=== PATIENT | female | born 2000 | race African-American/Black ===

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

== ENCOUNTER 2024-06-27 14:48 | Emergency (ER) | payer OTHER ==
[2024-06-27 15:03] VITALS: BP 116/68; PULSE 54; RESP 18; TEMP 97; BMI 25.7
[2024-06-27 15:49] LABS: BASO % 0.7 % (0-2.0); HEMATOCRIT 38.7 % (32.4-45.2); HEMOGLOBIN 12.6 GM/dL (10.7-15.3); LYMPH % 31.4 % (8-40); MCH 29.1 pg (25.7-33.7); MCHC 32.7 g/dl (32.0-36.0); MEAN CELL VOLUME 89.1 fl (80-96); MONO % 5.5 % (3.8-10.2); NEUT % 61.4 % (42.8-82.8); PLATELET COUNT 341 10^3/uL (134-434); RBC 4.34 M/mm3 (3.60-5.2); RDW 12.8 % (11.6-15.6); WHITE BLOOD COUNT 7.2 K/mm3 (4.0-10.0)
[2024-06-27 16:09] LABS: INR 1.11 (0.83-1.09); PROTHROMBIN TIME (PATIENT) 12.5 SEC (9.7-13.0)
[2024-06-27 16:11] LABS: ACTIVATED PTT 34.4 SECONDS (25.2-36.5)
[2024-06-27 16:24] LABS: POTASSIUM 4.4 mmol/L (3.5-5.1)
[2024-06-27 16:25] LABS: CALCIUM 9.3 mg/dL (8.5-10.1)
[2024-06-27 16:26] LABS: BLOOD UREA NITROGEN 15.7 mg/dL (7-18)
[2024-06-27 16:29] LABS: CREATININE 0.9 mg/dL (0.55-1.3)
[2024-06-27 17:24] LABS: EPI CELLS 24 /uL (0-25.1); HYALINE CASTS 0 /uL (0-3.1); URINE APPEARANCE CLEAR; URINE BACTERIA 294 /uL (0-1359); URINE BILIRUBIN NEGATIVE (NEGATIVE); URINE COLOR YELLOW; URINE GLUCOSE (UA) NEGATIVE (NEGATIVE); URINE KETONE NEGATIVE (NEGATIVE); URINE LEUK ESTERASE NEGATIVE (NEGATIVE); URINE NITRITE NEGATIVE (NEGATIVE); URINE PROTEIN NEGATIVE (NEGATIVE); URINE RBC 138 /uL (0-23.9); URINE WBC 13 /uL (0-25.8)
== END 2024-06-27 19:10 | disposition home or self-care (01) ==
LOC: JER 14:48
DX: O26.851 Spotting complicating pregnancy, first trimester (principal); Z3A.01 Less than 8 weeks gestation of pregnancy
CPT/HCPCS: 36415; 76817-TC; 80048; 81003; 84702; 85025; 85610; 85730; 86850; 86900; 86901; 99284-25

== ENCOUNTER 2024-07-01 16:08 | Emergency (ER) | payer OTHER ==
[2024-07-01 16:15] VITALS: BP 129/79; PULSE 66; RESP 18; TEMP 97.5; BMI 23.3
[2024-07-01 17:23] LABS: HCG,QUALITATIVE URINE Positive
[2024-07-01 17:26] LABS: EPI CELLS 8 /uL (0-25.1); HYALINE CASTS 1 /uL (0-3.1); PH,URINE 6.5 (5.0-8.0); URINE APPEARANCE CLEAR; URINE BACTERIA 113 /uL (0-1359); URINE BILIRUBIN NEGATIVE (NEGATIVE); URINE COLOR YELLOW; URINE GLUCOSE (UA) NEGATIVE (NEGATIVE); URINE KETONE TRACE (NEGATIVE); URINE LEUK ESTERASE NEGATIVE (NEGATIVE); URINE NITRITE NEGATIVE (NEGATIVE); URINE PROTEIN TRACE (NEGATIVE); URINE RBC 243 /uL (0-23.9); URINE WBC 5 /uL (0-25.8)
[2024-07-01 17:59] LABS: BASO % 0.5 % (0-2.0); EOS % 1.1 % (0-4.5); HEMATOCRIT 40.3 % (32.4-45.2); HEMOGLOBIN 13.1 GM/dL (10.7-15.3); LYMPH % 32.8 % (8-40); MCH 29.3 pg (25.7-33.7); MCHC 32.5 g/dl (32.0-36.0); MEAN PLT VOLUME 7.5 fl (7.5-11.1); NEUT % 59.6 % (42.8-82.8); PLATELET COUNT 331 10^3/uL (134-434); POTASSIUM 3.9 mmol/L (3.5-5.1); RBC 4.48 M/mm3 (3.60-5.2); RDW 12.7 % (11.6-15.6); WHITE BLOOD COUNT 7.2 K/mm3 (4.0-10.0)
[2024-07-01 18:01] LABS: ALBUMIN 4.1 g/dl (3.4-5.0); BLOOD UREA NITROGEN 16.5 mg/dL (7-18); CALCIUM 9.4 mg/dL (8.5-10.1)
[2024-07-01 18:04] LABS: CREATININE 1.1 mg/dL (0.55-1.3)
[2024-07-01 18:06] LABS: BILIRUBIN,TOTAL 0.4 mg/dL (0.2-1)
== END 2024-07-01 20:47 | disposition home or self-care (01) ==
LOC: JER 16:08
DX: O20.0 Threatened abortion (principal); Z3A.00 Weeks of gestation of pregnancy not specified
CPT/HCPCS: 36415; 76817-TC; 80053; 81003; 84702; 84703; 85025; 87086; 99284-25

== ENCOUNTER 2025-02-03 14:33 | Emergency (ER) | payer OTHER ==
[2025-02-03 14:40] VITALS: BP 124/80; PULSE 73; RESP 18; TEMP 99.5; BMI 21.6
[2025-02-03 16:41] LABS: ABSOLUTE IMMATURE GRANULOCYTES 0.01 x10^3/uL (0.0-0.031); BASOPHILS # 0.03 x10^3/uL (0.01-0.08); EOSINOPHILS # 0.18 x10^3/uL (0.04-0.36); HEMATOCRIT 39.9 % (34.1-44.9); MCHC 32.6 g/dl (32.2-35.5); MEAN CELL VOLUME 88.9 fl (79.4-94.8); MEAN PLT VOLUME 8.8 fl (9.4-12.3); MONOCYTE # 0.42 x10^3/uL (0.24-0.86); PLATELET COUNT 365 x10^3/uL (182-369); RDW 12.9 % (12.1-16.5)
[2025-02-03 17:00] LABS: POTASSIUM 4.2 mmol/L (3.5-5.1)
[2025-02-03 17:02] LABS: CALCIUM 9.7 mg/dL (8.5-10.1)
[2025-02-03 17:03] LABS: ALBUMIN 3.9 g/dl (3.4-5.0); BLOOD UREA NITROGEN 12.9 mg/dL (7-18)
[2025-02-03 17:06] LABS: CREATININE 0.9 mg/dL (0.55-1.3)
[2025-02-03 17:08] LABS: BILIRUBIN,TOTAL 0.4 mg/dL (0.2-1); TOT PROT 7.8 g/dl (6.4-8.2)
[2025-02-03 17:53] LABS: HCV DIAGNOSTIC IN-HOUSE W/RFLX NON-REACTIVE (NONREACTIVE); HIV INTERPRETATION NEGATIVE (NEGATIVE)
[2025-02-03] MEDS ORDERED: ACETAMINOPHEN 500 MG TABLET (FP) ONE (17:53)
[2025-02-03] MEDS ORDERED: MAG HYDROX/AL HYDROX/SIMETH 30 ML UNIT-DOSE CUP ONE (17:53)
[2025-02-03] MEDS: MAG HYDROX/AL HYDROX/SIMETH 30 ML UNIT-DOSE CUP PO ONE (18:02)
[2025-02-03] MEDS: ACETAMINOPHEN 500 MG TABLET (FP) PO ONE (18:02)
== END 2025-02-03 18:02 | disposition home or self-care (01) ==
LOC: JER 14:33
DX: K59.00 Constipation, unspecified (principal)
CPT/HCPCS: 36415; 74018-TC-FY; 80053; 83690; 84703; 85025; 86803; 87389; 99284-25